=== PATIENT | female | born 1965 | race African-American/Black ===

== ENCOUNTER 2024-01-13 12:31 | Emergency (ER) | payer MEDICAID ==
[~2024-01-13] VITALS: Ht 172.7 cm; Wt 104.0 kg
[~2024-01-13 12:31] MED LIST: AMLO5TAB4; LISI1TAB11; NABU-137
[2024-01-13 12:36] VITALS: BP 156/85; PULSE 89; RESP 20; TEMP 98; O2SAT 98
== END 2024-01-13 14:15 | disposition home or self-care (01) ==
LOC: ER 12:31
DX: M79.671 Pain in right foot (principal); I10 Essential (primary) hypertension; E11.9 Type 2 diabetes mellitus without complications; W01.0XXA Fall on same level from slipping, tripping and stumbling without subsequent striking against object, initial encounter; Y93.89 Activity, other specified; Y92.89 Other specified places as the place of occurrence of the external cause; Y99.8 Other external cause status
CPT/HCPCS: 73630; 99283